=== PATIENT | male | born 1950 | race Hispanic/Latino ===

== ENCOUNTER 2021-09-18 09:39 | Outpatient (CLI) | payer MEDICARE | END 2021-09-18 09:40 | disposition home or self-care (01) | LOC: CSHWCC 09:39 | PROVIDERS: ATTEND Nurse Practitioner Family | DX: T81.89XD Other complications of procedures, not elsewhere classified, subsequent encounter (principal); T81.30XD Disruption of wound, unspecified, subsequent encounter; E11.622 Type 2 diabetes mellitus with other skin ulcer; L98.499 Non-pressure chronic ulcer of skin of other sites with unspecified severity; D49.7 Neoplasm of unspecified behavior of endocrine glands and other parts of nervous system; E78.2 Mixed hyperlipidemia; I10 Essential (primary) hypertension ==

== ENCOUNTER 2021-09-21 12:33 | Outpatient (CLI) | payer MEDICARE | END 2021-09-21 12:34 | disposition home or self-care (01) | LOC: CSHWCC 12:33 | PROVIDERS: ATTEND Nurse Practitioner Family | DX: T81.89XD Other complications of procedures, not elsewhere classified, subsequent encounter (principal); T81.30XD Disruption of wound, unspecified, subsequent encounter; E11.622 Type 2 diabetes mellitus with other skin ulcer; E78.2 Mixed hyperlipidemia; I10 Essential (primary) hypertension; D49.7 Neoplasm of unspecified behavior of endocrine glands and other parts of nervous system ==

== ENCOUNTER 2021-09-23 12:47 | Outpatient (CLI) | payer MEDICARE | END 2021-09-23 12:48 | disposition home or self-care (01) | LOC: CSHWCC 12:47 | PROVIDERS: ATTEND Nurse Practitioner Family | DX: T81.89XD Other complications of procedures, not elsewhere classified, subsequent encounter (principal); T81.30XD Disruption of wound, unspecified, subsequent encounter; E11.622 Type 2 diabetes mellitus with other skin ulcer; L98.499 Non-pressure chronic ulcer of skin of other sites with unspecified severity; D49.7 Neoplasm of unspecified behavior of endocrine glands and other parts of nervous system; E78.2 Mixed hyperlipidemia; I10 Essential (primary) hypertension ==

== ENCOUNTER 2021-09-25 09:20 | Outpatient (CLI) | payer MEDICARE | END 2021-09-25 09:21 | disposition home or self-care (01) | LOC: CSHWCC 09:20 | PROVIDERS: ATTEND Nurse Practitioner Family | DX: T81.89XD Other complications of procedures, not elsewhere classified, subsequent encounter (principal); T81.30XD Disruption of wound, unspecified, subsequent encounter; E11.622 Type 2 diabetes mellitus with other skin ulcer; L98.499 Non-pressure chronic ulcer of skin of other sites with unspecified severity; D49.7 Neoplasm of unspecified behavior of endocrine glands and other parts of nervous system; E78.2 Mixed hyperlipidemia; I10 Essential (primary) hypertension ==

== ENCOUNTER 2021-09-28 10:11 | Outpatient (CLI) | payer MEDICARE | END 2021-09-28 10:12 | disposition home or self-care (01) | LOC: CSHWCC 10:11 | PROVIDERS: ATTEND Nurse Practitioner Family | DX: T81.89XS Other complications of procedures, not elsewhere classified, sequela (principal); T81.30XS Disruption of wound, unspecified, sequela; E11.622 Type 2 diabetes mellitus with other skin ulcer; L98.499 Non-pressure chronic ulcer of skin of other sites with unspecified severity; E78.2 Mixed hyperlipidemia; I10 Essential (primary) hypertension; D49.7 Neoplasm of unspecified behavior of endocrine glands and other parts of nervous system | CPT/HCPCS: 97605 ==

== ENCOUNTER 2021-10-01 09:05 | Outpatient (CLI) | payer MEDICARE | END 2021-10-01 09:06 | disposition home or self-care (01) | LOC: CSHWCC 09:05 | PROVIDERS: ATTEND Nurse Practitioner Family | DX: T81.89XS Other complications of procedures, not elsewhere classified, sequela (principal); T81.30XD Disruption of wound, unspecified, subsequent encounter; E11.622 Type 2 diabetes mellitus with other skin ulcer; L98.499 Non-pressure chronic ulcer of skin of other sites with unspecified severity; D49.7 Neoplasm of unspecified behavior of endocrine glands and other parts of nervous system; E78.2 Mixed hyperlipidemia; I10 Essential (primary) hypertension ==

== ENCOUNTER 2021-10-06 11:20 | Outpatient (CLI) | payer MEDICARE | END 2021-10-06 11:21 | disposition home or self-care (01) | LOC: CSHWCC 11:20 | PROVIDERS: ATTEND Nurse Practitioner Family | DX: T81.89XD Other complications of procedures, not elsewhere classified, subsequent encounter (principal) ==

== ENCOUNTER 2021-10-13 12:49 | Outpatient (CLI) | payer MEDICARE | END 2021-10-13 12:50 | disposition home or self-care (01) | LOC: CSHWCC 12:49 | PROVIDERS: ATTEND Nurse Practitioner Family | DX: T81.89XD Other complications of procedures, not elsewhere classified, subsequent encounter (principal) | CPT/HCPCS: 97139; 97605; G0463; 99212 ==

== ENCOUNTER 2021-10-19 09:26 | Outpatient (CLI) | payer MEDICARE | END 2021-10-19 09:27 | disposition home or self-care (01) | LOC: CSHWCC 09:26 | PROVIDERS: ATTEND Nurse Practitioner Family | DX: T81.89XD Other complications of procedures, not elsewhere classified, subsequent encounter (principal) | CPT/HCPCS: 97605 ==

== ENCOUNTER 2021-10-22 08:10 | Outpatient (CLI) | payer MEDICARE | END 2021-10-22 08:11 | disposition home or self-care (01) | LOC: CSHWCC 08:10 | PROVIDERS: ATTEND Nurse Practitioner Family | DX: T81.89XD Other complications of procedures, not elsewhere classified, subsequent encounter (principal) | CPT/HCPCS: 97605 ==

== ENCOUNTER 2021-10-27 08:08 | Outpatient (CLI) | payer MEDICARE | END 2021-10-27 08:09 | disposition home or self-care (01) | LOC: CSHWCC 08:08 | PROVIDERS: ATTEND Nurse Practitioner Family | DX: T81.89XD Other complications of procedures, not elsewhere classified, subsequent encounter (principal) | CPT/HCPCS: 97605 ==

== ENCOUNTER 2021-10-30 08:05 | Outpatient (CLI) | payer MEDICARE | END 2021-10-30 08:06 | disposition home or self-care (01) | LOC: CSHWCC 08:05 | PROVIDERS: ATTEND Nurse Practitioner Family | DX: T81.89XD Other complications of procedures, not elsewhere classified, subsequent encounter (principal) | CPT/HCPCS: 97605 ==

== ENCOUNTER 2021-11-03 10:50 | Outpatient (CLI) | payer MEDICARE | END 2021-11-03 10:51 | disposition home or self-care (01) | LOC: CSHWCC 10:50 | PROVIDERS: ATTEND Nurse Practitioner Family | DX: T81.89XD Other complications of procedures, not elsewhere classified, subsequent encounter (principal) ==

== ENCOUNTER 2021-11-06 07:50 | Outpatient (CLI) | payer MEDICARE, OTHER | END 2021-11-06 07:51 | disposition home or self-care (01) | LOC: CSHWCC 07:50 | PROVIDERS: ATTEND Nurse Practitioner Family | DX: T81.89XD Other complications of procedures, not elsewhere classified, subsequent encounter (principal) | CPT/HCPCS: 97605 ==

== ENCOUNTER 2021-11-10 10:06 | Outpatient (CLI) | payer MEDICARE | END 2021-11-10 10:07 | disposition home or self-care (01) | LOC: CSHWCC 10:06 | PROVIDERS: ATTEND Nurse Practitioner Family | DX: T81.89XD Other complications of procedures, not elsewhere classified, subsequent encounter (principal) | CPT/HCPCS: 97605 ==

== ENCOUNTER 2021-11-13 09:19 | Outpatient (CLI) | payer MEDICARE | END 2021-11-13 09:20 | disposition home or self-care (01) | LOC: CSHWCC 09:19 | PROVIDERS: ATTEND Nurse Practitioner Family | DX: T81.89XD Other complications of procedures, not elsewhere classified, subsequent encounter (principal) | CPT/HCPCS: 97605 ==

== ENCOUNTER 2021-11-27 08:27 | Outpatient (CLI) | payer MEDICARE | END 2021-11-27 08:28 | disposition home or self-care (01) | LOC: CSHWCC 08:27 | PROVIDERS: ATTEND Nurse Practitioner Family | DX: T81.89XD Other complications of procedures, not elsewhere classified, subsequent encounter (principal) | CPT/HCPCS: 97605 ==

== ENCOUNTER 2021-12-14 14:31 | Outpatient (CLI) | payer MEDICARE, OTHER | END 2021-12-14 14:32 | disposition home or self-care (01) | LOC: CSHWCC 14:31 | PROVIDERS: ATTEND Nurse Practitioner Family | DX: T81.89XD Other complications of procedures, not elsewhere classified, subsequent encounter (principal) | CPT/HCPCS: 11042; 97605 ==

== ENCOUNTER 2021-12-17 08:45 | Outpatient (CLI) | payer MEDICARE, OTHER | END 2021-12-17 08:46 | disposition home or self-care (01) | LOC: CSHWCC 08:45 | PROVIDERS: ATTEND Nurse Practitioner Family | DX: T81.89XD Other complications of procedures, not elsewhere classified, subsequent encounter (principal) | CPT/HCPCS: 97605 ==

== ENCOUNTER 2021-12-21 08:22 | Outpatient (CLI) | payer MEDICARE, OTHER | END 2021-12-21 08:23 | disposition home or self-care (01) | LOC: CSHWCC 08:22 | PROVIDERS: ATTEND Nurse Practitioner Family | DX: T81.89XD Other complications of procedures, not elsewhere classified, subsequent encounter (principal) | CPT/HCPCS: 11042; 97605 ==

== ENCOUNTER 2021-12-31 08:08 | Outpatient (CLI) | payer MEDICARE, OTHER | END 2021-12-31 08:09 | disposition home or self-care (01) | LOC: CSHWCC 08:08 | PROVIDERS: ATTEND Nurse Practitioner Family | DX: T81.89XD Other complications of procedures, not elsewhere classified, subsequent encounter (principal) | CPT/HCPCS: 97139; G0463; 99213 ==

== ENCOUNTER 2022-01-08 10:31 | Outpatient (CLI) | payer MEDICARE, OTHER | END 2022-01-08 10:32 | disposition home or self-care (01) | LOC: CSHWCC 10:31 | PROVIDERS: ATTEND Nurse Practitioner Family | DX: T81.89XD Other complications of procedures, not elsewhere classified, subsequent encounter (principal) | CPT/HCPCS: 99213; G0463 ==

== ENCOUNTER 2022-01-15 11:08 | Outpatient (CLI) | payer MEDICARE, OTHER | END 2022-01-15 11:09 | disposition home or self-care (01) | LOC: CSHWCC 11:08 | PROVIDERS: ATTEND Nurse Practitioner Family | DX: T81.89XD Other complications of procedures, not elsewhere classified, subsequent encounter (principal) | CPT/HCPCS: 97139; G0463; 99213 ==

== ENCOUNTER 2022-01-22 11:13 | Outpatient (CLI) | payer MEDICARE, OTHER | END 2022-01-22 11:14 | disposition home or self-care (01) | LOC: CSHWCC 11:13 | PROVIDERS: ATTEND Nurse Practitioner Family | DX: T81.89XD Other complications of procedures, not elsewhere classified, subsequent encounter (principal) | CPT/HCPCS: 11042 ==

== ENCOUNTER 2022-01-29 10:50 | Outpatient (CLI) | payer MEDICARE, OTHER | END 2022-01-29 10:51 | disposition home or self-care (01) | LOC: CSHWCC 10:50 | PROVIDERS: ATTEND Nurse Practitioner Family | DX: T81.89XD Other complications of procedures, not elsewhere classified, subsequent encounter (principal) | CPT/HCPCS: 87070; 87077; 87186; 87205; 99212; G0463 ==

== ENCOUNTER 2022-02-05 08:56 | Outpatient (CLI) | payer MEDICARE, OTHER | END 2022-02-05 08:57 | disposition home or self-care (01) | LOC: CSHWCC 08:56 | PROVIDERS: ATTEND Nurse Practitioner Family | DX: T81.89XD Other complications of procedures, not elsewhere classified, subsequent encounter (principal) | CPT/HCPCS: 97139; G0463; 99212 ==

== ENCOUNTER 2022-02-12 07:28 | Outpatient (CLI) | payer MEDICARE, OTHER | END 2022-02-12 07:29 | disposition home or self-care (01) | LOC: CSHWCC 07:28 | PROVIDERS: ATTEND Nurse Practitioner Family | DX: T81.89XD Other complications of procedures, not elsewhere classified, subsequent encounter (principal) | CPT/HCPCS: 11042 ==

== ENCOUNTER 2022-02-19 09:04 | Outpatient (CLI) | payer MEDICARE, OTHER | END 2022-02-19 09:05 | disposition home or self-care (01) | LOC: CSHWCC 09:04 | PROVIDERS: ATTEND Nurse Practitioner Family | DX: T81.89XD Other complications of procedures, not elsewhere classified, subsequent encounter (principal) | CPT/HCPCS: 97139; G0463; 99213 ==

== ENCOUNTER 2022-02-26 09:15 | Outpatient (CLI) | payer MEDICARE, OTHER | END 2022-02-26 09:16 | disposition home or self-care (01) | LOC: CSHWCC 09:15 | PROVIDERS: ATTEND Nurse Practitioner Family | DX: T81.89XD Other complications of procedures, not elsewhere classified, subsequent encounter (principal) | CPT/HCPCS: 11042 ==

== ENCOUNTER 2022-03-05 09:47 | Outpatient (CLI) | payer OTHER | END 2022-03-05 09:48 | disposition home or self-care (01) | LOC: CSHWCC 09:47 | PROVIDERS: ATTEND Nurse Practitioner Family | DX: T81.89XD Other complications of procedures, not elsewhere classified, subsequent encounter (principal) ==

== ENCOUNTER 2022-03-12 09:44 | Outpatient (CLI) | payer OTHER | END 2022-03-12 09:45 | disposition home or self-care (01) | LOC: CSHWCC 09:44 | PROVIDERS: ATTEND Nurse Practitioner Family | DX: T81.89XD Other complications of procedures, not elsewhere classified, subsequent encounter (principal) | CPT/HCPCS: 97605 ==

== ENCOUNTER 2022-03-19 09:17 | Outpatient (CLI) | payer OTHER | END 2022-03-19 09:18 | disposition home or self-care (01) | LOC: CSHWCC 09:17 | PROVIDERS: ATTEND Nurse Practitioner Family | DX: T81.89XD Other complications of procedures, not elsewhere classified, subsequent encounter (principal) ==

== ENCOUNTER 2022-04-02 09:51 | Outpatient (CLI) | payer OTHER | END 2022-04-02 09:52 | disposition home or self-care (01) | LOC: CSHWCC 09:51 | PROVIDERS: ATTEND Nurse Practitioner Family | DX: T81.89XD Other complications of procedures, not elsewhere classified, subsequent encounter (principal) | CPT/HCPCS: 11042; 11045 ==

== ENCOUNTER 2022-04-09 09:17 | Outpatient (CLI) | payer OTHER | END 2022-04-09 09:18 | disposition home or self-care (01) | LOC: CSHWCC 09:17 | PROVIDERS: ATTEND Nurse Practitioner Family | DX: T81.89XD Other complications of procedures, not elsewhere classified, subsequent encounter (principal) | CPT/HCPCS: 11042; 11045 ==

== ENCOUNTER 2022-04-23 10:08 | Outpatient (CLI) | payer OTHER | END 2022-04-23 10:09 | disposition home or self-care (01) | LOC: CSHWCC 10:08 | PROVIDERS: ATTEND Nurse Practitioner Family | DX: T81.89XD Other complications of procedures, not elsewhere classified, subsequent encounter (principal) | CPT/HCPCS: 11042 ==

== ENCOUNTER 2022-04-30 10:02 | Outpatient (CLI) | payer OTHER | END 2022-04-30 10:03 | disposition home or self-care (01) | LOC: CSHWCC 10:02 | PROVIDERS: ATTEND Nurse Practitioner Family | DX: T81.89XD Other complications of procedures, not elsewhere classified, subsequent encounter (principal) | CPT/HCPCS: 11042; 87070; 87077; 87186; 87205 ==

== ENCOUNTER 2022-05-14 08:11 | Outpatient (CLI) | payer OTHER | END 2022-05-14 08:12 | disposition home or self-care (01) | LOC: CSHWCC 08:11 | PROVIDERS: ATTEND Nurse Practitioner Family | DX: T81.89XD Other complications of procedures, not elsewhere classified, subsequent encounter (principal) | CPT/HCPCS: 99213; G0463 ==

== ENCOUNTER 2022-05-21 12:44 | Outpatient (CLI) | payer OTHER | END 2022-05-21 12:45 | disposition home or self-care (01) | LOC: CSHWCC 12:44 | PROVIDERS: ATTEND Preventive Medicine Undersea and Hyperbaric Medicine | DX: T81.89XS Other complications of procedures, not elsewhere classified, sequela (principal) | CPT/HCPCS: 99213; G0463 ==

== ENCOUNTER 2022-05-28 09:01 | Outpatient (CLI) | payer OTHER | END 2022-05-28 09:02 | disposition home or self-care (01) | LOC: CSHWCC 09:01 | PROVIDERS: ATTEND Nurse Practitioner Family | DX: T81.89XS Other complications of procedures, not elsewhere classified, sequela (principal) ==

== ENCOUNTER 2022-06-07 08:46 | Outpatient (CLI) | payer OTHER | END 2022-06-07 08:47 | disposition home or self-care (01) | LOC: CSHWCC 08:46 | PROVIDERS: ATTEND Preventive Medicine Undersea and Hyperbaric Medicine | DX: T81.89XD Other complications of procedures, not elsewhere classified, subsequent encounter (principal) | CPT/HCPCS: 97139; G0463; 99213 ==

== ENCOUNTER 2022-06-14 09:56 | Outpatient (CLI) | payer OTHER | END 2022-06-14 09:57 | disposition home or self-care (01) | LOC: CSHWCC 09:56 | PROVIDERS: ATTEND Preventive Medicine Undersea and Hyperbaric Medicine | DX: T81.89XS Other complications of procedures, not elsewhere classified, sequela (principal) | CPT/HCPCS: 97139; G0463; 99213 ==

== ENCOUNTER 2022-06-25 09:54 | Outpatient (CLI) | payer OTHER | END 2022-06-25 09:55 | disposition home or self-care (01) | LOC: CSHWCC 09:54 | PROVIDERS: ATTEND Preventive Medicine Undersea and Hyperbaric Medicine | DX: T81.89XD Other complications of procedures, not elsewhere classified, subsequent encounter (principal) ==

== ENCOUNTER 2022-07-09 10:18 | Outpatient (CLI) | payer OTHER | END 2022-07-09 10:19 | disposition home or self-care (01) | LOC: CSHWCC 10:18 | PROVIDERS: ATTEND Nurse Practitioner Family | DX: T81.89XD Other complications of procedures, not elsewhere classified, subsequent encounter (principal) | CPT/HCPCS: 97139; G0463; 99213 ==

== ENCOUNTER 2022-07-23 09:44 | Outpatient (CLI) | payer OTHER | END 2022-07-23 09:45 | disposition home or self-care (01) | LOC: CSHWCC 09:44 | PROVIDERS: ATTEND Nurse Practitioner Family | DX: T81.89XD Other complications of procedures, not elsewhere classified, subsequent encounter (principal) | CPT/HCPCS: 11042; 11045 ==

== ENCOUNTER 2022-08-13 09:30 | Outpatient (CLI) | payer OTHER | END 2022-08-13 09:31 | disposition home or self-care (01) | LOC: CSHWCC 09:30 | PROVIDERS: ATTEND Nurse Practitioner Family | DX: T81.89XD Other complications of procedures, not elsewhere classified, subsequent encounter (principal) | CPT/HCPCS: 87070; 87077; 87186; 87205 ==

== ENCOUNTER 2022-08-20 09:28 | Outpatient (CLI) | payer OTHER | END 2022-08-20 09:29 | disposition home or self-care (01) | LOC: CSHWCC 09:28 | PROVIDERS: ATTEND Nurse Practitioner Family | DX: T81.89XD Other complications of procedures, not elsewhere classified, subsequent encounter (principal) | CPT/HCPCS: 11042 ==

== ENCOUNTER 2022-09-10 09:03 | Outpatient (CLI) | payer OTHER | END 2022-09-10 09:04 | disposition home or self-care (01) | LOC: CSHWCC 09:03 | PROVIDERS: ATTEND Nurse Practitioner Family | DX: T81.89XD Other complications of procedures, not elsewhere classified, subsequent encounter (principal) | CPT/HCPCS: 11042; 99212; G0463 ==

== ENCOUNTER 2022-10-01 09:33 | Outpatient (CLI) | payer OTHER | END 2022-10-01 09:34 | disposition home or self-care (01) | LOC: CSHWCC 09:33 | PROVIDERS: ATTEND Nurse Practitioner Family | DX: T81.89XD Other complications of procedures, not elsewhere classified, subsequent encounter (principal) | CPT/HCPCS: 11042; 11045 ==

== ENCOUNTER 2022-10-29 09:38 | Outpatient (CLI) | payer OTHER | END 2022-10-29 09:39 | disposition home or self-care (01) | LOC: CSHWCC 09:38 | PROVIDERS: ATTEND Nurse Practitioner Family | DX: T81.89XD Other complications of procedures, not elsewhere classified, subsequent encounter (principal) | CPT/HCPCS: 11042 ==

== ENCOUNTER 2022-11-05 10:38 | Outpatient (CLI) | payer OTHER | END 2022-11-05 10:39 | disposition home or self-care (01) | LOC: CSHWCC 10:38 | PROVIDERS: ATTEND Nurse Practitioner Family | DX: T81.89XD Other complications of procedures, not elsewhere classified, subsequent encounter (principal) ==

== ENCOUNTER 2022-11-26 10:59 | Outpatient (CLI) | payer OTHER | END 2022-11-26 11:00 | disposition home or self-care (01) | LOC: CSHWCC 10:59 | PROVIDERS: ATTEND Nurse Practitioner Family | DX: T81.89XD Other complications of procedures, not elsewhere classified, subsequent encounter (principal) | CPT/HCPCS: 11042 ==

== ENCOUNTER 2022-12-31 08:02 | Outpatient (CLI) | payer OTHER | END 2022-12-31 08:03 | disposition home or self-care (01) | LOC: CSHWCC 08:02 | PROVIDERS: ATTEND Nurse Practitioner Family | DX: T81.89XD Other complications of procedures, not elsewhere classified, subsequent encounter (principal) ==

== ENCOUNTER 2023-02-25 08:06 | Outpatient (CLI) | payer OTHER | END 2023-02-25 08:07 | disposition home or self-care (01) | LOC: CSHWCC 08:06 | PROVIDERS: ATTEND Nurse Practitioner Family | DX: T81.89XD Other complications of procedures, not elsewhere classified, subsequent encounter (principal) | CPT/HCPCS: 11042 ==

== ENCOUNTER 2023-03-11 09:17 | Outpatient (CLI) | payer OTHER | END 2023-03-11 09:18 | disposition home or self-care (01) | LOC: CSHWCC 09:17 | PROVIDERS: ATTEND Nurse Practitioner Family | DX: T81.89XD Other complications of procedures, not elsewhere classified, subsequent encounter (principal) | CPT/HCPCS: 11042 ==

== ENCOUNTER 2023-04-15 09:01 | Outpatient (CLI) | payer OTHER | END 2023-04-15 09:02 | disposition home or self-care (01) | LOC: CSHWCC 09:01 | PROVIDERS: ATTEND Nurse Practitioner Family | DX: T81.89XD Other complications of procedures, not elsewhere classified, subsequent encounter (principal) | CPT/HCPCS: 11042 ==

== ENCOUNTER 2023-07-19 11:02 | Outpatient (CLI) | payer OTHER | END 2023-07-19 11:03 | disposition home or self-care (01) | LOC: CSHWCC 11:02 | PROVIDERS: ATTEND Physician Assistant | DX: T81.89XD Other complications of procedures, not elsewhere classified, subsequent encounter (principal); C25.0 Malignant neoplasm of head of pancreas | CPT/HCPCS: 97597; 97598 ==

== ENCOUNTER 2023-08-16 10:20 | Outpatient (CLI) | payer OTHER | END 2023-08-16 10:21 | disposition home or self-care (01) | LOC: CSHWCC 10:20 | PROVIDERS: ATTEND Physician Assistant | DX: T81.89XD Other complications of procedures, not elsewhere classified, subsequent encounter (principal); C25.0 Malignant neoplasm of head of pancreas | CPT/HCPCS: 99213; G0463 ==

== ENCOUNTER 2023-09-21 11:21 | Outpatient (CLI) | payer OTHER | END 2023-09-21 11:22 | disposition home or self-care (01) | LOC: CSHWCC 11:21 | PROVIDERS: ATTEND Preventive Medicine Undersea and Hyperbaric Medicine | DX: T81.89XD Other complications of procedures, not elsewhere classified, subsequent encounter (principal); C25.0 Malignant neoplasm of head of pancreas | CPT/HCPCS: 11042 ==

== ENCOUNTER 2023-10-12 12:55 | Outpatient (CLI) | payer OTHER | END 2023-10-12 12:56 | disposition home or self-care (01) | LOC: CSHWCC 12:55 | PROVIDERS: ATTEND Physician Assistant | DX: T81.89XD Other complications of procedures, not elsewhere classified, subsequent encounter (principal); C25.0 Malignant neoplasm of head of pancreas | CPT/HCPCS: 99212; G0463 ==

== ENCOUNTER 2023-11-01 14:37 | Outpatient (CLI) | payer OTHER | END 2023-11-01 14:38 | disposition home or self-care (01) | LOC: CSHWCC 14:37 | PROVIDERS: ATTEND Nurse Practitioner Family | DX: T81.31XD Disruption of external operation (surgical) wound, not elsewhere classified, subsequent encounter (principal); T81.89XD Other complications of procedures, not elsewhere classified, subsequent encounter; C25.0 Malignant neoplasm of head of pancreas | CPT/HCPCS: 11042 ==